=== PATIENT | female | born 1975 | race Caucasian/White ===

== ENCOUNTER 2019-07-24 21:04 | Emergency (ER) | payer OTHER ==
[~2019-07-24] VITALS: Ht 157.5 cm; Wt 62.6 kg
[2019-07-24 21:18] VITALS: Ht 157.5 cm; Wt 62.6 kg
[2019-07-24 22:45] VITALS: BP 139/79
== END 2019-07-24 22:45 | disposition home or self-care (01) ==
LOC: ED 21:04
DX: M25.511 Pain in right shoulder (principal); V49.9XXA Car occupant (driver) (passenger) injured in unspecified traffic accident, initial encounter; Y93.89 Activity, other specified; Y92.89 Other specified places as the place of occurrence of the external cause; Y99.8 Other external cause status